=== PATIENT | male | born 1990 | race American Indian/Alaskan Native ===

== ENCOUNTER 2017-03-25 05:17 | Emergency (ER) | payer SELFPAY ==
[2017-03-25] MEDS ORDERED: TYLENOL PO ONE (07:47)
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
[2017-03-25 09:01] VITALS: BP 145/88
== END 2017-03-25 09:14 | disposition home or self-care (01) ==
LOC: ED 05:17
DX: S39.012A Strain of muscle, fascia and tendon of lower back, initial encounter (principal); V89.2XXA Person injured in unspecified motor-vehicle accident, traffic, initial encounter; Y93.89 Activity, other specified; Y99.9 Unspecified external cause status; Y92.410 Unspecified street and highway as the place of occurrence of the external cause
CPT/HCPCS: 70450; 72125